=== PATIENT | female | born 1975 | race Caucasian/White ===

== ENCOUNTER 2019-05-15 17:47 | Emergency (ER) | payer SELFPAY ==
[~2019-05-15] VITALS: Ht 162.6 cm; Wt 85.3 kg
[2019-05-15 18:30] VITALS: BP 121/78
--- NOTE | 2019-05-15 18:42 | NUR ---
ASSISTED PT TO WAIT IN THE LOBBY.
[2019-05-15 19:10] LABS: BASOPHILS % (AUTO) 0.8 % (0.0-2.0); EOSINOPHILS # (AUTO) 0.2 K/uL (0-0.4); EOSINOPHILS % (AUTO) 4.1 % (0.0-4.0); HEMATOCRIT 34.6 % (36-48); HEMOGLOBIN 11.3 g/dL (12.0-16.0); LYMPHOCYTES # (AUTO) 1.9 K/uL (2.5-16.5); LYMPHOCYTES % (AUTO) 32.7 % (20.5-51.1); MEAN CORPUSCULAR HEMOGLOBIN 28 pg (27-31); MEAN CORPUSCULAR HGB CONC 33 g/dL (33-37); MEAN CORPUSCULAR VOLUME 85.1 fL (80-94); MONOCYTES # (AUTO) 0.4 K/uL (0.8-1.0); MONOCYTES % (AUTO) 6.1 % (1.7-9.3); NEUTROPHILS # (AUTO) 3.3 K/uL (1.8-7.7); NEUTROPHILS % (AUTO) 56.3 % (42.2-75.2); PLATELET COUNT (AUTO) 301 K/uL (140-450); RED BLOOD CELL COUNT(AUTO) 4.06 MIL/uL (4.20-5.40); RED CELL DISTRIBUTION WIDTH 14.4 % (11.6-13.7); WHITE BLOOD COUNT (AUTO) 5.8 K/uL (4.8-10.8)
[2019-05-15 19:22] LABS: CREATININE 0.6 mg/dL (0.6-1.3)
[2019-05-15 19:29] LABS: ALBUMIN 3.4 g/dL (3.4-5.0); TOTAL BILIRUBIN 0.3 mg/dL (0.0-1.0)
--- NOTE | 2019-05-15 20:21 | NUR ---
PT AMBULATED TO BED
[2019-05-15] MEDS: NITROGLYCERIN 0.4 MG TAB SL STA (20:49)
[2019-05-15] MEDS: SODIUM CHLORIDE FLUSH 10 ML SYR IVF STA (20:50)
--- NOTE | 2019-05-15 21:03 | NUR ---
43 Y/O FEMALE PRESENTS TO ED, C/O CHEST PAIN 8/10 X2 DAYS. PT STATES PAIN WORSENED TODAY. DOES NOT RADIATE. STATES TAKING XANAX BUT HAS NOT TAKEN MEDICATION FOR PAST WEEK. PT DENIES TAKING ANY MEDICATIONS FOR PAIN. DENIES ANY SOB. PT STABLE. ERMD AWARE. WILL CONTINUE TO MONITOR.
--- NOTE | 2019-05-15 21:11 | NUR ---
EKG PERFORMED AT BEDSIDE
[2019-05-15 21:19] VITALS: BP 114/47
--- NOTE | 2019-05-15 21:19 | NUR ---
PT DISCHARGED BY DR BLANK, PAPERWORK PROVIDED. NO MEDICATIONS GIVEN. EDUCATED PT REGARDING D/C DIAGNOSIS AND INSTRUCTIONS. PT VERBALIZED UNDERSTANDING OF TEACHING. TOLD PT TO FOLLOW UP WITH PCP AND WHEN TO RETURN TO ED. PT VSS. ALL QUESTIONS ANSWERED.
== END 2019-05-15 21:19 | disposition home or self-care (01) ==
LOC: MED 17:47
DX: R07.89 Other chest pain (principal); R68.84 Jaw pain; F41.9 Anxiety disorder, unspecified; I10 Essential (primary) hypertension; E11.8 Type 2 diabetes mellitus with unspecified complications
CPT/HCPCS: 36415; 71045; 80053; 84484; 85025; 93005; 99284; Q0092